=== PATIENT | male | born 1955 | race Caucasian/White ===

== ENCOUNTER 2022-02-23 10:38 | Outpatient (CLI) | payer MEDICARE ==
[~2022-02-23 10:38] MED LIST: Iopamidol 300 61% 100 ML VIAL FS ONE
== END 2022-02-23 10:39 | disposition home or self-care (01) ==
LOC: CSHCT 10:38
PROVIDERS: ATTEND Urology
DX: C64.1 Malignant neoplasm of right kidney, except renal pelvis (principal); N28.9 Disorder of kidney and ureter, unspecified; N28.1 Cyst of kidney, acquired; N20.0 Calculus of kidney
CPT/HCPCS: 74178; 82565

== ENCOUNTER 2022-05-07 09:57 | Outpatient (CLI) | payer MEDICARE ==
[2022-05-07] MEDS ORDERED: Iopamidol 300 61% 100 ML VIAL FS ONE (10:08)
== END 2022-05-07 09:58 | disposition home or self-care (01) ==
LOC: CSHCT 09:57
PROVIDERS: ATTEND Urology
DX: N20.0 Calculus of kidney (principal); R10.9 Unspecified abdominal pain; C64.1 Malignant neoplasm of right kidney, except renal pelvis; N28.1 Cyst of kidney, acquired
CPT/HCPCS: 74178; Q9967

== ENCOUNTER 2023-01-12 13:13 | Outpatient (CLI) | payer MEDICARE | END 2023-01-12 13:14 | disposition home or self-care (01) | LOC: CSHMRI 13:13 | PROVIDERS: ATTEND Urology | DX: N40.2 Nodular prostate without lower urinary tract symptoms (principal) | CPT/HCPCS: 72197; 82565 ==

== ENCOUNTER 2023-01-19 13:48 | Outpatient (CLI) | payer MEDICARE | END 2023-01-19 13:49 | disposition home or self-care (01) | LOC: CSHCT 13:48 | PROVIDERS: ATTEND Urology | DX: C64.1 Malignant neoplasm of right kidney, except renal pelvis (principal); N20.0 Calculus of kidney; N28.1 Cyst of kidney, acquired; R31.29 Other microscopic hematuria; Z90.5 Acquired absence of kidney | CPT/HCPCS: 74178; 82565 ==